=== PATIENT | male | born 1945 | race Caucasian/White ===

== ENCOUNTER 2016-06-26 20:09 | Emergency (ER) | payer OTHER ==
[~2016-06-26] VITALS: Ht 175.3 cm; Wt 75.9 kg
[2016-06-26 20:32] VITALS: Ht 175.3 cm; Wt 75.9 kg
--- NOTE | 2016-06-26 20:32 | NUR ---
PROVIDER DR GEORGE IN ROOM W/ PT.
[2016-06-26] MEDS ORDERED: LISI40TA4 PO (20:37)
[2016-06-26] MEDS ORDERED: CLON0.3T PO (20:37)
[2016-06-26] MEDS ORDERED: LEVO50TA4 PO (20:37)
[2016-06-26] MEDS ORDERED: GABA-338 PO (20:37)
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
[2016-06-26] MEDS ORDERED: OXYCODONE/APAP 5mg/325mg TABLET PO ONE (21:00)
[2016-06-26] MEDS ORDERED: KETOROLAC 60mg/2ml INJECTION IM ONE (21:00)
--- NOTE | 2016-06-26 21:09 | NUR ---
PO MED PERCOCET GIVEN CHARTED W/ PT TOLERANCE.
--- NOTE | 2016-06-26 21:10 | NUR ---
CT SCAN AND XRAY PT GONE TO XRAY VIA CART.
--- NOTE | 2016-06-26 21:32 | NUR ---
XRAY AND CT SCAN PT BACK FROM XRAY VIA CART.
[2016-06-26] MEDS ORDERED: OXYC1TAB8 PO (22:28)
[2016-06-26] MEDS ORDERED: OXYCODONE/APAP 5/325 (Prepack) SENT HOME ONE (22:30)
--- NOTE | 2016-06-26 22:35 | NUR ---
TAKE HOME PREPACK PT GIVEN PERCOCET TAKE HOME PREPACK AND VERBALIZED UNDERSTANDING OF ADMINISTRATION.
[2016-06-26 22:38] VITALS: BP 194/88; PULSE 69; RESP 20; TEMP 98.3; O2SAT 97
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
== END 2016-06-26 22:38 | disposition home or self-care (01) ==
LOC: ED 20:09
DX: S39.012A Strain of muscle, fascia and tendon of lower back, initial encounter (principal); S16.1XXA Strain of muscle, fascia and tendon at neck level, initial encounter; S60.212A Contusion of left wrist, initial encounter; V46.5XXA Car driver injured in collision with other nonmotor vehicle in traffic accident, initial encounter; Y93.89 Activity, other specified; Y92.410 Unspecified street and highway as the place of occurrence of the external cause; Y99.8 Other external cause status
CPT/HCPCS: 72125; 72131; 73100; 96372; 99283; J1885; L0150